=== PATIENT | female | born 1955 | race Caucasian/White ===

== ENCOUNTER 2017-09-08 13:13 | Emergency (ER) | payer OTHER, SELFPAY ==
[2017-09-08] MEDS ORDERED: KETOROLAC 30 MG/ML INJ ONE (13:51)
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
--- NOTE | 2017-09-08 14:27 | RAD REPORT ---
EXAM DESCRIPTION: RAD - Ribs Right - 09/08/2017 2:06 pm CLINICAL HISTORY: PAIN Fall COMPARISON: Chest Pa And Lat (2 Views) dated 09/08/2017 FINDINGS: Oblique fracture is seen involving the right posterior eighth rib. Displacement is minimal .
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
[2017-09-08 15:02] VITALS: BP 122/79; O2SAT 99
== END 2017-09-08 14:57 | disposition home or self-care (01) ==
LOC: ER 13:13
DX: S22.31XA Fracture of one rib, right side, initial encounter for closed fracture (principal); V18.0XXA Pedal cycle driver injured in noncollision transport accident in nontraffic accident, initial encounter; Z88.0 Allergy status to penicillin; Z88.2 Allergy status to sulfonamides; F17.210 Nicotine dependence, cigarettes, uncomplicated
CPT/HCPCS: 71046; 96372; 99283